=== PATIENT | female | born 1980 ===

== ENCOUNTER 2020-04-13 11:22 | Outpatient (REF) | payer OTHER, SELFPAY | END 2020-04-13 11:23 | disposition home or self-care (01) | LOC: HO.LAB 11:22 | PROVIDERS: PCP Internal Medicine; Visit Provider Internal Medicine | DX: Z20.828 Contact with and (suspected) exposure to other viral communicable diseases (principal) | CPT/HCPCS: C9803; U0003 ==

== ENCOUNTER 2020-06-14 11:55 | Outpatient (REF) | payer OTHER, SELFPAY | END 2020-06-14 11:56 | disposition home or self-care (01) | LOC: HO.LAB 11:55 | PROVIDERS: Visit Provider Internal Medicine | DX: Z20.822 Contact with and (suspected) exposure to COVID-19 (principal) | CPT/HCPCS: 36415; C9803; U0003; U0005 ==

== ENCOUNTER 2020-06-29 13:14 | Outpatient (REF) | payer OTHER, SELFPAY | END 2020-06-29 13:15 | disposition home or self-care (01) | LOC: HO.LAB 13:14 | PROVIDERS: Visit Provider Internal Medicine | DX: Z20.822 Contact with and (suspected) exposure to COVID-19 (principal) | CPT/HCPCS: 36415; C9803; U0003; U0005 ==

== ENCOUNTER 2022-04-21 08:52 | Emergency (ER) | payer OTHER, SELFPAY ==
[2022-04-21 08:57] VITALS: BP 140/70; PULSE 78; RESP 18; TEMP 36.6; O2SAT 98; BMI 46.0
--- NOTE | 2022-04-21 10:46 | ED.GENADULT ---
HPI - General Adult General Chief complaint: Extremity Injury, Lower Stated complaint: HBP/R leg pain [id number] Time Seen by Provider: 04/21/22 09:58 Source: patient Mode of arrival: ambulatory Limitations: no limitations History of Present Illness HPI narrative: 42-year-old female with past medical history of fibromyalgia presents to the emergency department with a 1 month history of right anterior knee pain that radiates to the posterior. She states she was recently at urgent care had a knee x-ray which was negative. She had previously been treating her fibromyalgia pain with tramadol, however; she has not had any tramadol for the past 2 months. She denies any injuries, warmth or swelling at the knee joint, new changes in discomfort. She denies any recent illness or known sick contacts. Onset (ago): month(s) (1) Location: right and lower extremity Severity: moderate Severity scale (1-10): 6 Quality: aching Pain Consistency: constant Relieving factors: none Exacerbating factors: none Associated symptoms: denies other symptoms Treatments prior to arrival: none Related Data Previous Rx's Medication Instructions Recorded lidocaine 5 % topical ointment 1 appl topical BID PRN pain #30 04/21/22 grams tramadol 50 mg tablet 50 mg PO BID PRN pain #10 tabs 04/21/22 tramadol 50 mg tablet 50 mg PO Q6H PRN pain #10 tabs 04/21/22 Allergies Allergy/AdvReac Type Severity Reaction Status Date / Time No Known Allergies Allergy Unverified 01/20/20 16:08 Review of Systems Review of Systems: In addition to documented HPI above, the additional ROS was obtained: Constitutional: No Weight loss, No Fever, No Chills ENT/Mouth: No Ear Pain, No Nasal Congestion, No sore throat Cardiovascular: No Chest Pain, No SOB Respiratory: No Cough, No Sputum, No Wheezing Gastrointestinal: No Nausea, No Vomiting, No Diarrhea, No Constipation, No Abdominal pain Musculoskeletal: No joint pain, No Myalgias, No Joint Swelling Skin: No Skin Lesions, No rash Neuro: No Weakness, No Numbness, No Paresthesias Yes all other systems are reviewed and are negative PMFSH Past Medical History Attestation statement: The following information was validated with the patient. Source: old records reviewed and obtained from family Social History Social History Advance Directives: No Advance Directives Information Provided: No Physical Exam ED Vital Signs: Vital Signs - 24 hr 04/21/22 08:57 Temperature 98 F Pulse Rate 78 Respiratory Rate 18 Blood Pressure 140/70 H Pulse Oximetry 98 Oxygen Delivery Method Room Air BMI result Body Mass Index 46.0 Const General: cooperative, alert, awake and Physically active Nutritional Appearance: well nourished Orientation/consciousness: patient oriented x3 Limitations: no limitations HENMT Head: Yes normal to inspection and Yes atraumatic Ears: hearing grossly normal bilaterally General nose exam: Normal external nose present Face and sinus: Yes normal facial exam and Yes face symmetric Mouth: Normal oral and palatal mucosa present Eyes General: appearance normal, both eyes and all related structures Visual Santillan: normal visual santillan by confrontation Alignment and Position: alignment normal Periorbital: periorbital findings normal Eyelids: Yes eyelids normal Conjunctivae: conjunctivae normal Sclerae: sclerae normal Corneas: corneas normal Pupils: Equal, round and reactive pupils present EOM: EOMs intact bilaterally Neck Neck: Yes normal visual inspection and Yes full ROM Chest Chest palpation & inspection: normal inspection of the chest Resp Effort & Inspection: normal respiratory effort, no cough and not labored Auscultation: clear to auscultation bilaterally, no crackles, no rhonchi and no wheezes Cardio Rate: regular rate Rhythm: regular rhythm Back/Spine/Pelvis Cervical Spine: cervical ROM normal Thoracic/Lumbar Spine: thoraco-lumbar ROM normal Skin General skin exam: no rashes or lesions noted Neuro General: patient oriented x3 and moves all extremities Cranial nerves: Yes Equal, round and reactive pupils present Cognition (Neuro): normal cognition Gait exam (Neuro): Antalgic gait present Motor exam (neuro): 5/5 motor strength present throughout Extrem General: Yes normal to inspection, Yes full ROM and Yes capillary refill normal Right lower extremity: normal to inspection, normal capillary refill and knee Details: normal to inspection, tenderness and abnormal ROM Details: pain with active ROM during Details: in flexion Medical Decision Making Medical Decision Making MDM Narrative: 42-year-old female with past medical history of fibromyalgia presents to the emergency department with a 1 month history of right anterior knee pain that radiates to the posterior. Pain is reproducible on exam with discomfort in flexion of knee. No discomfort with extension. No erythema, ecchymosis or swelling noted. No swelling or mass noted in posterior knee. Previous x-ray negative per patient. Suspicious for acute on chronic pain flare. Low suspicion for popliteal cyst, bursitis, or posterior ligament damage based on HPI. Educated to use cold or heat for comfort. Educated to use [id number] Tylenol for treatment of discomfort. Tramadol prescription provided for comfort. Recommended to follow-up with her primary care provider for continued recommendations for chronic pain. HPI, PE, and plan discussed with patient with no unanswered questions at this time. Educated to return to the emergency department for redness, swelling, fever, chills, inability to straighten her leg, or any other concerning emergent symptoms. Discharge Plan Discharge Clinical Impression: Chronic knee pain Patient Disposition: Home, Self-Care Prescriptions: New tramadol 50 mg tablet 50 mg PO BID PRN (Reason: pain) Qty: 10 0RF lidocaine 5 % ointment 1 appl topical BID PRN (Reason: pain) Qty: 30 0RF tramadol 50 mg tablet 50 mg PO Q6H PRN (Reason: pain) Qty: 10 0RF Referrals: Mendy Chang MD [Primary Care Provider] - Print Language: Faroese
== END 2022-04-21 11:27 | disposition home or self-care (01) ==
PROVIDERS: Emergency Provider Emergency Medicine; PCP Internal Medicine
DX: M25.561 Pain in right knee (principal)
CPT/HCPCS: 99283

== ENCOUNTER 2022-09-18 12:23 | Emergency (ER) | payer OTHER, SELFPAY ==
--- NOTE | ~2022-09-18 | XR_ITS ---
EXAMINATION: XR CHEST CLINICAL INFORMATION: Cough COMPARISON: Previous chest x-ray October 2016 TECHNIQUE: 2 views of the chest were obtained. FINDINGS: No significant abnormality is noted involving the heart, lungs, mediastinum, bony thorax or soft tissues. XR/XR chest 2V IMPRESSION: Unremarkable examination.
[2022-09-18 12:31] VITALS: BP 138/100; PULSE 90; RESP 18; TEMP 36.1; O2SAT 100; BMI 50.8
--- NOTE | 2022-09-18 12:31 | ED_ITS ---
HPI - URI/Sore Throat General Chief Complaint: Upper Respiratory Symptoms <DARINEL Whitehead - Last Filed: 09/18/22 12:39> Stated Complaint: Sore throat <DARINEL Whitehead - Last Filed: 09/18/22 12:39> Time Seen by Provider: 09/18/22 14:14 <DARINEL Whitehead - Last Filed: 09/18/22 12:39> Source: patient <Kalani Morales MD - Last Filed: 09/18/22 14:54> Mode of arrival: ambulatory <Kalani Morales MD - Last Filed: 09/18/22 14:54> History of Present Illness HPI Narrative: 42-year-old female with dry cough and throat discomfort for 1 week but not associated with any fevers or chills and states that she thinks she may have seen some blood-tinged phlegm when coughing. She denies any ear pain or sick contacts. <Kalani Morales MD - Last Filed: 09/18/22 14:54> Related Data Home Medications: Previous Rx's Medication Instructions Recorded lidocaine 5 % topical ointment 1 appl topical BID PRN pain #30 04/21/22 grams tramadol 50 mg tablet 50 mg PO Q6H PRN pain #10 tabs 04/21/22 <DARINEL Whitehead - Last Filed: 09/18/22 12:39> Allergies/Adverse Reactions: Allergies Allergy/AdvReac Type Severity Reaction Status Date / Time No Known Allergies Allergy Verified 09/18/22 12:36 <DARINEL Whitehead - Last Filed: 09/18/22 12:39> Review of Systems Review of Systems: Pertinent positives and negatives as stated in HPI <Kalani Morales MD - Last Filed: 09/18/22 14:54> PMFSH Past Medical History Source: nursing notes reviewed <Kalani Morales MD - Last Filed: 09/18/22 14:54> Social History Social History: Social History Advance Directives: No <DARINEL Whitehead - Last Filed: 09/18/22 12:39> Physical Exam Vital Signs: Vital Signs: Last Vital Signs Temp 97.0 F 09/18/22 12:31 Pulse 90 09/18/22 12:31 Resp 18 09/18/22 12:31 BP 138/100 H 09/18/22 12:31 Pulse Ox 100 09/18/22 12:31 O2 Del Method Room Air 09/18/22 12:31 BMI result Body Mass Index 50.8 <DARINEL Whitehead - Last Filed: 09/18/22 12:39> Vital Signs: Last Vital Signs Temp 97.0 F 09/18/22 12:31 Pulse 90 09/18/22 12:31 Resp 18 09/18/22 12:31 BP 138/100 H 09/18/22 12:31 Pulse Ox 100 09/18/22 12:31 O2 Del Method Room Air 09/18/22 12:31 BMI result Body Mass Index 50.8 VITAL SIGNS: Reviewed. GENERAL: Well developed, well nourished, in no acute distress. HEAD: Normocephalic/atraumatic EYES: PERRLA, EOMI EARS: Ext canals without abnormality, TMs non-bulging and non-erythematous NOSE: Nares patent bilateral OROPHARYNX: no oral lesions noted, posterior pharynx clear and non-erythematous without noted tonsillar enlargement/erythema/exudates NECK: Supple, no adenopathy LUNGS: Normal breath sounds. No adventitious sounds or accessory muscle use. SpO2<100> CARDIOVASCULAR: Regular rate and rhythm without noted murmurs, no JVD or lower extremity edema. ABDOMEN: Soft, non-tender, non-distended with bowel sounds. No rigidity. No guarding. No palpable masses or hernias noted SKIN: Inspection of the skin reveals no rashes NEUROLOGIC: Alert and oriented x 4. Strength and sensation to light touch were grossly intact x 4. <Kalani Morales MD - Last Filed: 09/18/22 14:54> Course Course Course Narrative: RME 42 yo female with a history of seasonal allergies and fibromyalgia presenting with one week of dry throat. She notes a small specs of blood coming up when she coughs. She has no pain with swallowing. She states her throat feels swollen. She does not have erythema in her throat. Her lungs are CTA. She does not smoke. No tachycardia or hypoxia. No chest pain or SOB. Plan: chest x-ray. strep and covid test <DARINEL Whitehead - Last Filed: 09/18/22 12:39> Medical Decision Making Medical Decision Making MDM Narrative: 42-year-old female with history and clinical presentation of pharyngitis, on review of all strep and COVID testing they are negative. I recommend to elsie ent for Flonase and bedside cool mist humidifier. <Kalani Morales MD - Last Filed: 09/18/22 14:54> Differential Diagnosis Please see the discussion above <Kalani Morlaes MD - Last Filed: 09/18/22 14:54> Lab Data Please see the discussion above <Kalani Morales MD - Last Filed: 09/18/22 14:54> Labs: Lab Results 09/18/22 09/18/22 Range/Units 13:51 13:51 COVID-19 (GELA) Negative (Negative) COVID-19 Clin Com See Note S. pyogenes GrpA BLAINE Negative (Negative) <DARINEL Whitehead - Last Filed: 09/18/22 12:39> Lab Results 09/18/22 09/18/22 Range/Units 13:51 13:51 COVID-19 (GELA) Negative (Negative) COVID-19 Clin Com See Note S. pyogenes GrpA BLAINE Negative (Negative) <Kalani Morales MD - Last Filed: 09/18/22 14:54> Discharge Plan Discharge Clinical Impression: Pharyngitis <DARINEL Whitehead - Last Filed: 09/18/22 12:39> Patient Disposition: Home, Self-Care <DARINEL Whitehead - Last Filed: 09/18/22 12:39> Instructions: Pharyngitis (ED) <DARINEL Whitehead - Last Filed: 09/18/22 12:39> Additional Instructions: 1. Recommend bedside I had cool mist humidifier at night. 2. Recommend starting Flonase to use in conjunction with your Claritin. 3. Follow-up with primary care provider. Return to the ER for any worsening symptoms. <DARINEL Whitehead - Last Filed: 09/18/22 12:39> Prescriptions: No Action lidocaine 5 % ointment 1 appl topical BID PRN (Reason: pain) Qty: 30 0RF tramadol 50 mg tablet 50 mg PO Q6H PRN (Reason: pain) Qty: 10 0RF <DARINEL Whitehead - Last Filed: 09/18/22 12:39> Referrals: Mendy Chang MD [Primary Care Provider] - <DARINEL Whitehead - Last Filed: 09/18/22 12:39>
[2022-09-18 14:00] VITALS: BP 152/100; PULSE 66; RESP 20; O2SAT 99
[2022-09-18 14:18] LABS: IDNOW Serial# 08D9AD1C
[2022-09-18 14:19] LABS: COVID-19 Test Negative (Negative); IDNOW Serial# 9DB6401D; Strep A Nucleic Acid Negative (Negative)
== END 2022-09-18 15:14 | disposition home or self-care (01) ==
PROVIDERS: Physician Assistant; Emergency Provider Student in an Organized Health Care Education/Training Program; PCP Internal Medicine
DX: J02.9 Acute pharyngitis, unspecified (principal); Z20.822 Contact with and (suspected) exposure to COVID-19; Z20.828 Contact with and (suspected) exposure to other viral communicable diseases; Z79.899 Other long term (current) drug therapy
CPT/HCPCS: 71046; 87635; 87651; 99283

== ENCOUNTER 2023-07-08 06:28 | Emergency (ER) | payer OTHER, SELFPAY ==
--- NOTE | 2023-07-08 | ECG_ITS ---
Test Reason : dizziness Blood Pressure : / mmHG Vent. Rate : 071 BPM Atrial Rate : 071 BPM P-R Int : 130 ms QRS Dur : 076 ms QT Int : 444 ms P-R-T Axes : 046 008 016 degrees QTc Int : 482 ms Normal sinus rhythm Prolonged QT Abnormal ECG When compared with ECG of 07-OCT-2016 15:52, No significant change was found Referred By: Generic ED Physician Electronically Signed By:Steven Lopez
--- NOTE | ~2023-07-08 | CT_ITS ---
EXAMINATION: CT HEAD WITHOUT CONTRAST CLINICAL INFORMATION: Pain and dizziness COMPARISON: None available. TECHNIQUE: Contiguous axial imaging was performed from the skull base to vertex without intravenous administration of contrast. This CT examination was performed using dose optimization techniques as appropriate, variously including the following: *Automated exposure control *Adjustment of mA and/or kV according to patient size (this includes techniques or standardized protocols for targeted exams where dose is matched to indication/reason for exam; i.e. extremities or head) *Use of iterative reconstruction technique DLP: 684 mGy-cm FINDINGS: There is no acute intra-axial, extra-axial bleed, masses or midline shift. There is no acute infarction evolution. There is no edema. Baez to white matter differentiation is maintained normal. The lateral ventricles are symmetrical and normal size. Bone windows reveal no calvarial abnormality. There is no scalp soft tissue abnormality. Bilateral paranasal sinuses and mastoid air cells are well-aerated. CT/CT head/brain wo IV con IMPRESSION: No acute intracranial process seen .
[2023-07-08 06:34] VITALS: BP 161/91; PULSE 74; RESP 17; TEMP 36.3; O2SAT 98; BMI 50.8
[2023-07-08 06:47] VITALS: BP 162/92; PULSE 72; RESP 16; TEMP 36.1; O2SAT 99
--- NOTE | 2023-07-08 06:48 | ED.GENADULT ---
HPI - General Adult General Chief complaint: Dizziness Stated complaint: Dizziness Time Seen by Provider: 07/08/23 06:44 Source: patient Mode of arrival: ambulatory Limitations: no limitations History of Present Illness HPI narrative: Patient is a 43 year old assigned female at with no reported medical history presenting to the emergency department today with dizziness. Patient states that she woke up and felt as though the room was spinning and it got worse when she began her commute to work and has some nausea. Patient denies any lightheadedness, abdominal pain, vomiting, fever, chills, blurry vision, double vision, loss of vision, chest pain, difficulty breathing, shortness of breath, back pain, night sweats, pain with urination, increased urinary frequency, increased urinary urgency, blood in her urine or stool, syncope or a near syncopal episode, recent trauma or falls, bowel incontinence, bladder incontinence, bowel retention, bladder retention, or any other complaints at this time. Onset (ago): hour(s) Relieving factors: none Exacerbating factors: none Associated symptoms: denies other symptoms Treatments prior to arrival: none Related Data Previous Rx's Medication Instructions Recorded lidocaine 5 % topical ointment 1 appl topical BID PRN pain #30 04/21/22 grams tramadol 50 mg tablet 50 mg PO Q6H PRN pain #10 tabs 04/21/22 cefuroxime axetil 250 mg tablet 250 mg PO BID 7 days #14 tabs 07/08/23 meclizine 12.5 mg tablet 12.5 mg PO TID PRN dizziness #14 07/08/23 tabs Allergies Allergy/AdvReac Type Severity Reaction Status Date / Time No Known Allergies Allergy Verified 07/08/23 06:33 Review of Systems Constitutional: Constitutional: Reports no additional constitutional complaints, Denies chills, Denies fever(s) and Denies night sweats Eyes: Eyes: Reports no additional eye complaints, Denies blurry vision, Denies change in vision, Denies diplopia, Denies eye discharge, Denies loss of vision and Denies eye pain ENT: Reports dizziness Cardiovascular: Cardiovascular: Reports no additional cardiovascular complaints, Denies chest pain, Denies lightheadedness, Denies Loss of Consciousness and Denies dyspnea Respiratory: Respiratory: Reports no additional respiratory complaints and Denies dyspnea Gastrointestinal: Gastrointestinal: Reports no additional gastrointestinal complaints, Denies abdominal pain, Denies melena, Denies hematochezia, Denies change in bowel habits, Denies change in stool character and Reports nausea Genitourinary: Genitourinary: Denies hematuria, Denies urinary frequency, Denies dysuria, Denies urinary incontinence, Denies urinary hesitancy and Denies urinary urgency Musculoskeletal: Musculoskeletal: Reports no additional musculoskeletal complaints, Denies numbness and Denies tingling Neurologic: Reports dizziness, Denies loss of vision, Denies numbness and Denies tingling Psychiatric: Psychiatric: Reports no additional psychiatric complaints Endocrine: Endocrine: Reports no additional endocrine complaints Hematologic/Lymphatic: Hematologic/Lymphatic: Reports no additional hematologic/lymphatic complaints Allergic/Immunologic: Allergic/Immunologic: Reports no additional allergic/immunologic complaints PMFSH Past Medical History Attestation statement: The following information was validated with the patient. Source: old records reviewed and nursing notes reviewed Social History Social History Smoked in Last 30 Days: No Use of substances other than those prescribed or required for medical reasons: No Advance Directives: No Advance Directives Information Provided: No Patient : No Physical Exam ED Vital Signs: Vital Signs - 24 hr 07/08/23 06:34 07/08/23 06:47 07/08/23 08:49 Temperature 97.4 F 97 F 97.9 F Pulse Rate 74 72 61 Respiratory Rate 17 16 16 Blood Pressure 161/91 H 162/92 H 117/66 Pulse Oximetry 98 99 99 Oxygen Delivery Method Room Air Room Air Room Air 07/08/23 10:29 Temperature 97.6 F Pulse Rate 67 Respiratory Rate 16 Blood Pressure 107/59 L Pulse Oximetry 98 Oxygen Delivery Method Room Air BMI result Body Mass Index 50.8 Const General: cooperative, no acute distress, alert and awake Nutritional Appearance: well nourished Orientation/consciousness: patient oriented x3 Limitations: no limitations HENMT Head: Yes normal to inspection and Yes atraumatic Ears: hearing grossly normal bilaterally and external ears normal General nose exam: Normal external nose present, no nasal discharge noted and no epistaxis Face and sinus: Yes normal facial exam, No abrasion and No laceration Mouth: Normal oral and palatal mucosa present, no drooling and no muffled voice Eyes General: appearance normal, both eyes and all related structures Periorbital: periorbital findings normal Eyelids: Yes eyelids normal Conjunctivae: conjunctivae normal Pupils: Equal, round and reactive pupils present EOM: EOMs intact bilaterally Neck Neck: Yes normal visual inspection, Yes full ROM and Yes no lymphadenopathy Chest Chest palpation & inspection: normal inspection of the chest Resp Effort & Inspection: normal respiratory effort and able to speak in complete sentences GI Inspection: Yes normal to inspection Palpation (GI): Soft to palpation, not firm, nontender, no guarding and not rigid Neuro General: patient oriented x3 and moves all extremities Cranial nerves: Yes Equal, round and reactive pupils present Cognition (Neuro): normal cognition Motor exam (neuro): 5/5 motor strength present throughout Sensory Exam: Normal double simultaneous stimulation for sensation Coordination: [id number] test normal Extrem General: Yes normal to inspection, Yes full ROM and Yes capillary refill normal Psych Appearance: grossly normal Mental Status: mental status grossly normal Affect: normal affect Attitude: cooperative Thought process: Normal thought process present Thought content: Normal thought content present Insight: Good insight present (Psych) Medications Administered Discontinued Medications Generic Name Dose Route Start Last Admin Trade Name Jorge PRN Reason Stop Dose Admin Sodium Chloride 1,000 mls @ 999 mls/hr 07/08/23 07:00 07/08/23 10:04 Ns IV 07/08/23 08:00 Infused .Q1H1M AJ Infusion Meclizine HCl 25 mg 07/08/23 07:04 07/08/23 08:41 Meclizine Hcl 25 Mg Tablet PO 07/08/23 07:05 25 mg ONCE ONE Administration Ondansetron HCl 4 mg 07/08/23 06:48 07/08/23 08:43 Ondansetron Hcl 4 Mg/2 Ml Vial IVPUSH 07/08/23 06:49 4 mg ONCE ONE Administration Medical Decision Making Medical Decision Making [facility] Narrative: Patient is a 43 year old assigned female at with no reported medical history presenting to the emergency department today with dizziness. Patient's physical exam was unremarkable. Patient's blood work was unremarkable. Patient's urine showed evidence of a UTI. Given the patient's symptoms, will treat. Patient's EKG was unremarkable. Patient's head CT showed no acute process. I explained my physical exam findings as well as all test results to the patient. I answered all questions asked by the patient. I stressed the importance of the patient taking her medication as prescribed. I stressed the importance of the patient following up with her primary care provider. I stressed the importance of the patient returning to the emergency department immediately if her symptoms were to worsen or if she were to develop any dizziness, shortness of breath, difficulty breathing, chest pain, blurry vision, loss of vision, nausea, vomiting, abdominal pain, fever, chills, back pain, or any other complaints. Patient verbalized agreement and understanding with this treatment plan and discharge. Differential Diagnosis Differential Diagnoses: The differential diagnosis associated with the presentation includes Dizziness Vertigo UTI Admission/Observation Consideration of admission/observation: Escalation of care including admission/observation considered Patient would have been admitted to the hospital had her work up had any findings where hospital admission was appropriate and her clinical presentation warranted hospital admission. Lab Data [facility] Lab Attestation statement: I reviewed the patient's lab results. My interpretation of these results are in the [facility] Rationale portion of this note. 07/08/23 07:46 07/08/23 07:46 Labs: Lab Results 07/08/23 07/08/23 Range/Units 07:46 09:49 WBC 9.2 (4.8-10.8) X10*3/uL RBC 4.12 L (4.20-5.50) X10*6/uL Hgb 11.9 L (12.0-16.0) g/dl Hct 36.6 L (37.0-47.0) % MCV 88.8 (80.0-98.0) fL MCH 28.9 (27.0-33.0) pg MCHC 32.5 (31.0-35.0) g/dl RDW 13.2 (11.0-16.0) % Plt Count 332 (160-400) X10*3/uL MPV 8.7 L (9.4-12.3) fL Absolute Nucleated RBC 0.000 (0.0-0.012) X10*3/uL Nucleated RBC % (auto) 0.0 (0.0-0.2) /100WBC Sodium 138 (135-145) mmol/L Potassium 4.1 (3.3-5.1) mmol/L Chloride 107 (96-108) mmol/L Carbon Dioxide 26 (22-29) mmol/L Anion Gap 9 L (12-20) BUN 16 (9-16) mg/dL Creatinine 0.76 (0.5-1.4) mg/dL Estim Creat Clear Calc 112.1 Estimated GFR > 60 Random Glucose 86 (60-115) mg/dL Calcium 9.2 (8.4-10.2) mg/dL Total Bilirubin 0.2 (0.0-1.0) mg/dL AST 14 (5-31) U/L ALT 15 (0-31) U/L Alkaline Phosphatase 77 (39-117) U/L Total Protein 7.7 (6.5-8.0) g/dL Albumin 3.7 (3.5-5.0) g/dL TSH 2.16 (0.32-4.0) uIU/mL Beta HCG, Quant < 2 mIU/mL Urine Color Yellow Urine Appearance Cloudy Urine pH 5.5 (5.0-9.0) Ur Specific Redfox 1.025 (1.005-1.025) Urine Protein Negative (Neg-Trace) mg/dL Urine Glucose (UA) Negative (Negative) mg/dL Urine Ketones Negative (Negative) mg/dL Urine Blood Negative (Negative) Urine Nitrite Negative (Negative) Ur Leukocyte Esterase Trace H (Negative) Urine RBC 0-2 (0-2) /HPF Urine WBC 6-10 H (0-5) /HPF Ur Squamous Epith Cells 6-10 (0-2) /HPF Urine Bacteria 4+ (None Seen) Hyaline Casts 0-2 (0-2) /LPF Influenza Type A (PCR) NEGATIVE (Negative) Influenza Type B (PCR) NEGATIVE (Negative) RSV RNA Qual (PCR) NEGATIVE (Negative) SARS-CoV-2 RNA (RT-PCR) NEGATIVE (Negative) Independent Interpretation I performed an independent interpretation of an: EKG and CT Scan Interpretation: My interpretation is in agreement with the radiologist's impression of this imaging study. EXAMINATION: CT HEAD WITHOUT CONTRAST CLINICAL INFORMATION: Pain and dizziness COMPARISON: None available. TECHNIQUE: Contiguous axial imaging was performed from the skull base to vertex without intravenous administration of contrast. This CT examination was performed using dose optimization techniques as appropriate, variously including the following: *Automated exposure control *Adjustment of mA and/or kV according to patient size (this includes techniques or standardized protocols for targeted exams where dose is matched to indication/reason for exam; i.e. extremities or head) *Use of iterative reconstruction technique DLP: 684 mGy-cm FINDINGS: There is no acute intra-axial, extra-axial bleed, masses or midline shift. There is no acute infarction evolution. There is no edema. Baez to white matter differentiation is maintained normal. The lateral ventricles are symmetrical and normal size. Bone windows reveal no calvarial abnormality. There is no scalp soft tissue abnormality. Bilateral paranasal sinuses and mastoid air cells are well-aerated. CT/CT head/brain wo IV con IMPRESSION: No acute intracranial process seen . Dictated By: Jesus Quesada MD Signed By: Electronically signed by Jesus Quesada MD 07/08/23 0920 Vent. Rate: 071 BPM Atrial Rate: 071 BPM P-R Int: 130 ms QRS Dur: 076 ms QT Int: 444 ms P-R-T Axes: 046 008 016 degrees QTc Int: 482 ms Normal sinus rhythm Prolonged QT Abnormal ECG When compared with ECG of 07-OCT-2016 15:52, No significant change was found DD/ [id number] Radiology Impression Discussion of test interpretation with radiology: I have reviewed the radiologist's reading. Prescription Management I considered prescription management with: Antibiotic (patient prescribed an antibiotic for UTI) Discharge Plan Discharge Clinical Impression: Urinary tract infection Patient Disposition: Home, Self-Care Instructions: Urinary Tract Infection in Women (DC) Additional Instructions: Take your antibiotic as prescribed. Follow up with your primary care provider. Return to the emergency department immediately if your symptoms worsen or if you develop any dizziness, shortness of breath, difficulty breathing, chest pain, blurry vision, loss of vision, nausea, vomiting, abdominal pain, fever, chills, back pain, or any other complaints. Prescriptions: New cefuroxime axetil 250 mg tablet 250 mg PO BID 7 Days Qty: 14 0RF meclizine 12.5 mg tablet 12.5 mg PO TID PRN (Reason: dizziness) Qty: 14 0RF No Action lidocaine 5 % ointment 1 appl topical BID PRN (Reason: pain) Qty: 30 0RF tramadol 50 mg tablet 50 mg PO Q6H PRN (Reason: pain) Qty: 10 0RF Referrals: Mendy Chang MD [Primary Care Provider] - Stand Alone Forms: Work/School Release Interventions: ED Discharge Assessment Last Done: 07/08/23 11:12 Discharge Date/Time: 07/08/23 11:13 Print Language: Israeli
[2023-07-08 07:52] LABS: Hematocrit 36.6 % (37.0-47.0); Hemoglobin 11.9 g/dl (12.0-16.0); Mean Corpuscular HGB Conc 32.5 g/dl (31.0-35.0); Mean Corpuscular Hemoglobin 28.9 pg (27.0-33.0); Mean Corpuscular Volume 88.8 fL (80.0-98.0); Mean Platelet Volume 8.7 fL (9.4-12.3); Platelet Count 332 X10*3/uL (160-400); Red Blood Count 4.12 X10*6/uL (4.20-5.50); Red Cell Distribution Width 13.2 % (11.0-16.0); White Blood Count 9.2 X10*3/uL (4.8-10.8)
[2023-07-08 08:08] LABS: Alanine Aminotransferase 15 U/L (0-31); Albumin Level 3.7 g/dL (3.5-5.0); Alkaline Phosphatase 77 U/L (39-117); Anion Gap 9 (12-20); Aspartate Amino Transferase 14 U/L (5-31); Bilirubin Total 0.2 mg/dL (0.0-1.0); Blood Urea Nitrogen 16 mg/dL (9-16); Calcium 9.2 mg/dL (8.4-10.2); Carbon Dioxide 26 mmol/L (22-29); Chloride 107 mmol/L (96-108); Creatinine Clr Calc Pharmacy 112.1; Estimated Glomerular Filt Rate > 60; Glucose Random 86 mg/dL (60-115); Potassium 4.1 mmol/L (3.3-5.1); Sodium 138 mmol/L (135-145); Total Protein 7.7 g/dL (6.5-8.0)
[2023-07-08 08:16] LABS: HCG Quantitative < 2 mIU/mL
[2023-07-08 08:27] LABS: TSH reflex Free T4 2.16 uIU/mL (0.32-4.0)
[2023-07-08 08:40] LABS: Influenza A PCR NEGATIVE (Negative); Influenza B PCR NEGATIVE (Negative); Resp Syncy Virus RNA Qual PCR NEGATIVE (Negative); SARS COV2 PCR INHOUSE NEGATIVE (Negative)
[2023-07-08] MEDS: Meclizine HCl 25 MG TABLET PO (08:41)
[2023-07-08] MEDS: 0.9 % Sodium Chloride 1,000 ML 999 ML IV (08:43)
[2023-07-08] MEDS: ondansetron HCL 4 MG/2 ML VIAL IVPUSH (08:43)
[2023-07-08 08:49] VITALS: BP 117/66; PULSE 61; RESP 16; TEMP 36.6; O2SAT 99
[2023-07-08 09:56] LABS: Appearance Urine Cloudy; Color Urine Yellow; Glucose Urine UA Negative (Negative); Leukocyte Esterase Urine Trace (Negative); Nitrite Urine Negative (Negative); PH 5.5 (5.0-9.0); Specific Gravity - Urine 1.025 (1.005-1.025); UMIC TRIGGER UACC YES; Urine Blood Negative (Negative); Urine Ketones Negative (Negative); Urine Protein Negative (Neg-Trace)
[2023-07-08 10:06] LABS: Bacteria Urine 4+ (None Seen); Hyaline Casts Urine 0-2 /LPF (0-2); RBC Urine 0-2 /HPF (0-2); UACC Culture Trigger YES
[2023-07-08 10:29] VITALS: BP 107/59; PULSE 67; RESP 16; TEMP 36.4; O2SAT 98
--- NOTE | 2023-07-08 10:29 | PC.NURSE ---
pt a&ox4, calm, and cooperative. 22G IV placed to LAC. labs drawn and sent. pt taken to CT scan. fluids hung and pt medicated per mar. went in to discharge pt with hardly any fluids infusing. pt arm was bent. pt requesting to stay to finish at least half the bag. discharge instructions/education given. will take down fluids/IV once half bag infuses. call rich within reach. plan of care ongoing.
== END 2023-07-08 11:13 | disposition home or self-care (01) ==
PROVIDERS: Physician Assistant Medical; Emergency Provider Student in an Organized Health Care Education/Training Program; PCP Internal Medicine
DX: N39.0 Urinary tract infection, site not specified (principal); R42 Dizziness and giddiness; R11.2 Nausea with vomiting, unspecified; R51.9 Headache, unspecified; R94.31 Abnormal electrocardiogram [ECG] [EKG]; Z11.52 Encounter for screening for COVID-19; Z20.822 Contact with and (suspected) exposure to COVID-19; Z79.899 Other long term (current) drug therapy
CPT/HCPCS: 0241U; 36415; 70450; 80053; 81001; 84443; 84702; 85027; 87086; 93005; 96361; 96374; 99284; 99285; J2405

== ENCOUNTER → 2023-07-08 07:57 | Outpatient (BNV) | payer OTHER, SELFPAY | PROVIDERS: Emergency Provider Student in an Organized Health Care Education/Training Program; PCP Internal Medicine; Visit Provider Internal Medicine Cardiovascular Disease | DX: R94.31 Abnormal electrocardiogram [ECG] [EKG] (principal) | CPT/HCPCS: 93010 ==